=== PATIENT | male | born 1970 | race Caucasian/White ===

== ENCOUNTER 2017-10-10 03:58 | Emergency (ER) | payer OTHER ==
[2017-10-10] MEDS ORDERED: Acetaminophen/HYDROcodone 325-7.5 MG Tab PO ONE (04:22)
--- NOTE | 2017-10-10 04:29 | EDM.PDOC ---
ED HPI GENERAL MEDICAL PROBLEM - General Chief Complaint: Lower Extremity Injury/Pain Stated Complaint: POSSIBLE BROKEN LEFT LEG Time Seen by Provider: 10/10/17 04:09 - History of Present Illness INITIAL COMMENTS - FREE TEXT/NARRATIVE: HISTORY AND PHYSICAL: History of present illness: Patient is a 47-year-old male whose only medical history is of asthma who presents with complaints of left mid leg pain that started this evening. Patient states that he was hit with the metal bar of a forklift which impacted him at the mid left leg and initially he did not have any pain. He continued working and then went home and still had no pain. As the evening progressed she started having swelling and pain to the muscle area and more discomfort. He has no weakness in the leg just pain with ambulation and no neurosensory changes in the foot. He has no other injuries and no other systemic complaints. He is here in the ED because of concerns about a possible broken leg. He took ibuprofen just prior to coming here. Patient is not on any anticoagulation therapy Review of systems: As per history of present illness and below otherwise all systems reviewed and negative. Past medical history: As per history of present illness and as reviewed below otherwise noncontributory. Surgical history: As per history of present illness and as reviewed below otherwise noncontributory. Social history: No reported history of drug or alcohol abuse. Family history: As per history of present illness and as reviewed below otherwise noncontributory. Physical exam: Gen.: Well-developed well-nourished man who was helped into a wheelchair by his family and wheeled himself in. He prefers not to ambulate due to discomfort. Vital signs are noted by me. HEENT: Atraumatic, normocephalic, , negative for conjunctival pallor or scleral icterus, mucous membranes moist, throat clear, neck supple, nontender, trachea midline. Lungs: Clear to auscultation, breath sounds equal bilaterally, chest nontender. Heart: S1S2, regular rate and rhythm no overt murmurs Abdomen: Soft, nondistended, nontender. NABS Pelvis: Stable nontender. Genitourinary: Deferred. Rectal: Deferred. Extremities: Atraumatic with full range of motion of all extremities with the exception of the left tib-fib area. In this region there are no palpable bony deformities at the tib-fib and no defects are appreciated but there is diffuse soft tissue swelling of the calf medially with visible ecchymosis. This is ill- defined and very tender to palpation. It is not circumferential and the patient is able to dorsi and plantar flex and color and cap refill distally are intact. Pulses are palpable but they were also dopplered they are triphasic at the dorsalis pedis and the posterior tibial arteries. There is no distal ankle pain or swelling or foot pain or swelling and no proximal knee deformities tenderness or swelling.. Neurovascular unremarkable. Neuro: Awake, alert, oriented. Cranial nerves II through XII unremarkable. Cerebellum unremarkable. Motor and sensory unremarkable throughout. Exam nonfocal. Diagnostics: X-ray left tib-fib, CBC and CPK Therapeutics: Norris, crutches; patient declined an Demetris wrap Impression: Contusion with hematoma of left lower leg Definitive disposition and diagnosis as appropriate pending reevaluation and review of above. Left Leg Pain Score (Numeric/FACES): 7 - Related Data Allergies Allergy/AdvReac Type Severity Reaction Status Date / Time No Known Allergies Allergy Verified 10/10/17 04:15 Home Meds: Home Meds Albuterol Sulfate [Proair Hfa] 8.5 gm IH Q4HR PRN 10/10/17 [History] Fluticasone/Vilanterol [Breo Ellipta 100-25 MCG Inhalation Kit] 1 each IH DAILY 10/10/17 [History] Review of Systems - Review of Systems Review Of Systems: ROS reveals no pertinent complaints other than HPI. ED EXAM, GENERAL - Physical Exam Exam: See Below (See dictation) Course - Vital Signs Last Recorded V/S: Last Vital Signs Temp 36.9 C 10/10/17 04:12 Pulse 78 10/10/17 04:12 Resp 12 10/10/17 04:12 BP 139/79 10/10/17 04:12 Pulse Ox 95 10/10/17 04:12 - Orders/Labs/Meds Orders: Active Orders 24 hr Category Date Time Status Tibia Fibula Lt [CR] Stat Exams 10/10/17 04:22 Taken DME for Discharge [COMM] Stat Oth 10/10/17 05:29 Ordered Labs: Laboratory Tests 10/10/17 10/10/17 Range/Units 04:28 04:28 WBC 5.93 (4.0-11.0) K/uL RBC 4.39 L (4.50-5.90) M/uL Hgb 14.1 (13.0-17.0) g/dL Hct 40.4 (38.0-50.0) % MCV 92.0 (80.0-98.0) fL MCH 32.1 H (27.0-32.0) pg MCHC 34.9 (31.0-37.0) g/dL RDW Std Deviation 44.0 (28.0-62.0) fl RDW Coeff of Aquiles 13 (11.0-15.0) % Plt Count 271 (150-400) K/uL MPV 10.20 (7.40-12.00) fL Neut % (Auto) 55.3 (48.0-80.0) % Lymph % (Auto) 27.2 (16.0-40.0) % [place] % (Auto) 10.1 (0.0-15.0) % Eos % (Auto) 6.4 (0.0-7.0) % Baso % (Auto) 1.0 (0.0-1.5) % Neut # (Auto) 3.3 (1.4-5.7) K/uL Lymph # (Auto) 1.6 (0.6-2.4) K/uL [place] # (Auto) 0.6 (0.0-0.8) K/uL Eos # (Auto) 0.4 (0.0-0.7) K/uL Baso # (Auto) 0.1 (0.0-0.1) K/uL Nucleated RBC % 0.0 /100WBC Nucleated RBCs # 0 K/uL Creatine Kinase 139 (26-308) U/L Meds: Medications Discontinued Medications Generic Name Dose Route Start Last Admin Trade Name Freq PRN Reason Stop Dose Admin Hydrocodone Bitart/Acetaminophen 1 tab 10/10/17 04:22 10/10/17 04:28 Norris 325-7.5 Mg PO 10/10/17 04:23 1 tab ONETIME ONE Administration Departure - Departure Time of Disposition: 05:30 Disposition: Home, Self-Care 01 Condition: Good Clinical Impression: Contusion of left lower leg Qualifiers: Encounter type: initial encounter Qualified Code(s): S80.12XA - Contusion of left lower leg, initial encounter - Discharge Information Referrals: Sergo Oconnell MD [Primary Care Provider] - Forms: ED Department Discharge Additional Instructions: The following information is given to patients seen in the emergency department who are being discharged to home. This information is to outline your options for follow-up care. We provide all patients seen in our emergency department with a follow-up referral. The need for follow-up, as well as the timing and circumstances, are variable depending upon the specifics of your emergency department visit. If you don't have a primary care physician on staff, we will provide you with a referral. We always advise you to contact your personal physician following an emergency department visit to inform them of the circumstance of the visit and for follow-up with them and/or the need for any referrals to a consulting specialist. The emergency department will also refer you to a specialist when appropriate. This referral assures that you have the opportunity for followup care with a specialist. All of these measure are taken in an effort to provide you with optimal care, which includes your followup. Under all circumstances we always encourage you to contact your private physician who remains a resource for coordinating your care. When calling for followup care, please make the office aware that this follow-up is from your recent emergency room visit. If for any reason you are refused follow-up, please contact the [facility] emergency department at and ask to speak to the emergency department charge nurse. [facility] Primary care- Internal Medicine and Family [place] [id number] [place] [id number] [facility] Specialty Care--Orthopedic clinic Professional Building [address] [place] [id number] Ice and elevate the area as much as possible and use [id number] ibuprofen 600-800 mg every 6-8 hours for pain and swelling. Use the Norris you have been prescribed for pain but take only when you're at home. Try not to weight-bear on the leg as this will increase pain and swelling and use crutches as given to you in the ED. Call and schedule a follow-up appointment with either your provider in the clinic or the orthopedic clinic in the next few days for reevaluation further care. Return to ER as needed and as discussed. You have been given Norris from [email or web address] - My Orders Last 24 Hours: My Active Orders 10/10/17 04:22 Tibia Fibula Lt [CR] Stat 10/10/17 05:29 DME for Discharge [COMM] Stat - Assessment/Plan Last 24 Hours: My Active Orders 10/10/17 04:22 Tibia Fibula Lt [CR] Stat 10/10/17 05:29 DME for Discharge [COMM] Stat
--- NOTE | 2017-10-10 15:02 | CR ---
EXAM DATE: 10/10/17 PATIENT'S AGE: 47 Patient: CLAU ESTRADA Facility: [place], [place] Site . Site : [id number] Study: XRay Extremity Left TIB-FIB [id number]/9/2018 4:48:24 AM Ordering Physician: Sj Mohan Final Report: INDICATION: "dropped pipe" on L lower leg today bruising on medial side since pt denies pain unless weight bearing TECHNIQUE: Left tibia/ fibula radiographs COMPARISON: None FINDINGS: Bones: Enthesophyte formation along the Achilles tendon insertion to the calcaneus. No fractures or bone lesions. Joint spaces: Unremarkable. Soft tissues: Unremarkable. IMPRESSION: No acute bony abnormality Dictated by Ruperto La MD @ 10/10/2017 5:25:44 AM Dictated by: Ruperto La MD @ 10/10/2017 05:27:18 (Electronic Signature) Report Signed by Proxy. LORE
== END 2017-10-10 05:51 | disposition home or self-care (01) ==
LOC: MW.ED 03:58
DX: S80.12XA Contusion of left lower leg, initial encounter (principal); Z79.51 Long term (current) use of inhaled steroids; W22.8XXA Striking against or struck by other objects, initial encounter; Y92.89 Other specified places as the place of occurrence of the external cause; Y99.0 Civilian activity done for income or pay
CPT/HCPCS: 36415; 73590; 82550; 85025; 99283; A9270

== ENCOUNTER 2023-05-27 18:38 | Emergency (ER) | payer OTHER | END 2023-05-27 21:41 | disposition home or self-care (01) | LOC: MW.ED 18:38 | DX: S63.296A Dislocation of distal interphalangeal joint of right little finger, initial encounter (principal); J45.909 Unspecified asthma, uncomplicated; Z79.899 Other long term (current) drug therapy; X08.8XXA Exposure to other specified smoke, fire and flames, initial encounter | CPT/HCPCS: 26770; 73120-26-RT; 73120-RT; 73140-26-F9; 73140-F9; 99283; 99283-25 ==